=== PATIENT | female | born 1990 | race Caucasian/White ===

== ENCOUNTER 2017-06-28 05:59 | Inpatient (IN) | payer MEDICAID ==
[2017-06-28] MEDS ORDERED: Sodium Chloride 0.9% 1,000 ML IV SCH (06:30)
[2017-06-28] MEDS ORDERED: Oxytocin 10 Units/1 ML SDV ONE ×2 (06:40→08:17)
[2017-06-28] MEDS: Lactated Ringers 1,000 ML IV SCH ×3 (07:06→21:22)
[2017-06-28] MEDS ORDERED: diphenhydrAMINE 50 MG/ML SDV IVPUSH PRN (07:50)
[2017-06-28] MEDS ORDERED: Simethicone 80 MG Tab.Chew PO PRN (07:50)
[2017-06-28] MEDS ORDERED: Benzocaine 20% Top Spray 56 GM Bottle TOP PRN (07:50)
[2017-06-28] MEDS ORDERED: Bisacodyl 10 MG Supp RECTAL PRN (07:50)
[2017-06-28] MEDS ORDERED: ePHEDrine 50 MG/ML SDV IVPUSH PRN (07:50)
[2017-06-28] MEDS ORDERED: Ondansetron 4 MG Tab.DIS PO PRN (07:50)
[2017-06-28] MEDS ORDERED: Acetaminophen 325 MG Tab PO PRN (07:50)
[2017-06-28] MEDS ORDERED: Sennosides 8.6 MG Tab PO PRN (07:50)
[2017-06-28] MEDS ORDERED: Aluminum Hydroxide/Magnesium Hydroxide/Simethicone Susp 30 ML Cup PO PRN (07:50)
[2017-06-28] MEDS ORDERED: diphenhydrAMINE 50 MG/ML SDV IV PRN (07:50)
[2017-06-28] MEDS ORDERED: Hydrocortisone 2.5% Crm 30 GM Tube TOP PRN (07:50)
[2017-06-28] MEDS ORDERED: Naloxone 0.4 MG/ML SDV IVPUSH PRN ×2 (07:50→10:26)
[2017-06-28] MEDS ORDERED: Witch Hazel Medicated Pads 100/Jar TOP PRN (07:50)
[2017-06-28] MEDS ORDERED: Morphine 2 MG/ML Syringe IVPUSH PRN (07:53)
[2017-06-28] MEDS ORDERED: ePHEDrine 50 MG/ML SDV ONE (08:08)
[2017-06-28] MEDS ORDERED: Lidocaine 2% 5 ML SDV ONE (08:08)
[2017-06-28] MEDS ORDERED: cefOXitin 2 GM Vial ONE (08:23)
[2017-06-28] MEDS ORDERED: Sodium Chloride 0.9% 10 ML ONE (08:23)
[2017-06-28] MEDS: Ibuprofen 800 MG Tab PO PRN ×2 (10:06→21:21)
[2017-06-28] MEDS: Acetaminophen/HYDROcodone 325-5 MG Tab PO PRN (10:21)
[2017-06-28] MEDS ORDERED: Morphine PF 150 MG/30 ML PCA Syringe IV PRN (10:26)
[2017-06-28] MEDS ORDERED: Morphine 2 MG/ML Syringe IVPUSH ONE (10:35)
[2017-06-28] MEDS: Prenatal Multivitamin with Calcium/Folic Acid/Iron Tab PO SCH (18:29)
[2017-06-29] MEDS ORDERED: Lanolin 100% Cream 40 GM Tube TOP ONE (07:44)
[2017-06-29] MEDS: Ibuprofen 800 MG Tab PO PRN ×3 (07:50→23:51)
[2017-06-29] MEDS: Docusate Sodium 100 MG Cap PO PRN ×2 (07:50→19:13)
[2017-06-29] MEDS: Acetaminophen/HYDROcodone 325-5 MG Tab PO PRN ×4 (09:02→23:52)
--- NOTE | 2017-06-29 09:06 | OR ---
DATE OF PROCEDURE: 06/28/2017 PROCEDURES PERFORMED: 1. section with aftercare. 2. Tubal ligation. ANESTHESIA: Spinal. MANAGER CATH LAB: Tash Barrios CNM, CNP RISKS: Risks, benefits, alternatives, limitations including, but not limited to infection, bleeding, injury to baby, bladder, and other risks not listed here were explained to the patient, and she wished to proceed. PROCEDURE IN DETAIL: The patient was placed in supine position. The abdomen was prepped and draped. The previous Pfannenstiel incision was opened using a #15 blade. Electrocautery was then used to carry down to the external fascia, which was also opened with electrocautery. Metzenbaum scissors was used to enter the peritoneal cavity, and the bladder was identified and readily deflected inferiorly. Using the muscle spreading technique, the rectus muscles were then spread. The remainder of the bladder was deflected inferiorly. The uterine wall was noted to be very thin. This was opened with a mosquito dissector. This was then enlarged with electrocautery. The baby was delivered without difficulty. At no time was the baby's large head pulled on or uneven pressure applied, rather integrade pressure was used to deliver the baby. Once the baby was delivered, the placenta was delivered without difficulty. This was noted to be in totum. The uterus was inspected for any remnant material, and none was noted. The uterus was then closed with #1 Vicryl in a running locked fashion x2. This was delivered back in the abdomen, after tubal ligation was performed. Tubal ligation was performed by clamping and suture-ligating the tube on the left and the right. This will be sent for pathology. The ends were then burned with electrocautery. The abdomen was thoroughly irrigated. The rectus muscles were reapproximated with Vicryl suture. The fascia was closed with #1 Vicryl suture. Subcutaneous tissues were thoroughly irrigated. The fat was closed with Vicryl, and the skin was closed with 4-0 Vicryl. Dermabond was applied. Bruno Briceño MD /[id number]
[2017-06-29] MEDS: Prenatal Multivitamin with Calcium/Folic Acid/Iron Tab PO SCH (11:35)
[2017-06-30] MEDS: Acetaminophen/HYDROcodone 325-5 MG Tab PO PRN ×2 (05:28→09:31)
[2017-06-30 07:49] VITALS: BP 140/86
[2017-06-30] MEDS: Prenatal Multivitamin with Calcium/Folic Acid/Iron Tab PO SCH (09:05)
[2017-06-30] MEDS ORDERED: Lanolin 100% Cream 40 GM Tube TOP PRN (09:06)
[2017-06-30] MEDS: Ibuprofen 800 MG Tab PO PRN (09:09)
--- NOTE | 2017-07-01 09:34 | DISCH ---
ADMISSION DIAGNOSIS: Term . DISCHARGE DIAGNOSIS: section with after care and tubal ligation. HISTORY: After preoperative evaluation and discussion of possible risks and possible complications, she wished to proceed with surgical procedure. HOSPITAL COURSE: was on 06/28/2017. Bruno Briceño MD, surgeon. Publisher Assistant, Shikha Barrios CNM/SHANICE. There were no operative complications. On postop day 1, vital signs were stable. Activity was good and she was able to be discharged to home on 06/30/2017. PHYSICAL EXAMINATION: GENERAL: Yazmin Albert is a 26-year-old female. VITAL SIGNS: Height 5 feet 4.96 inches. Weight is 255 pounds. TPR is 95.4, 84, 16, blood pressure is 140/86. HEENT: Negative. NECK: Supple. HEART: Regular rate and rhythm. LUNGS: Clear. ABDOMEN: Incision looks good. EXTREMITIES: Without peripheral edema. DISPOSITION: Discharged to home. CONDITION: Stable and improving. FOLLOWUP APPOINTMENT: With Bruno Briceño MD, 07/05/2017 at 1 p.m. HOME MEDICATIONS: Tylenol 650 mg q.4 hours p.r.n. pain, Dozier 5/325 mg q.4 hours p.r.n. pain #30, Colace 100 mg p.o. q.12 hours #100, ibuprofen 800 mg q.8 hours p.r.n. pain #80. She is to resume her home medication. DIET: Usual diet as tolerated. Drink 8 to 10 glasses of water a day. ACTIVITY: No lifting greater than baby in car seat for 6 weeks[address] Driving, do not drive on pain medication. Shower/bathing, may shower. Keep operative site clean and dry. Notify provider if any fever, increased pain, swelling, redness, drainage, nausea, or vomiting.
--- NOTE | 2017-08-06 10:00 | PN ---
DATE OF SERVICE: 06/29/2017 SUBJECTIVE: The patient continues to do well. Pain is well controlled. No nausea, vomiting, shortness of breath, or chest pain. OBJECTIVE: VITAL SIGNS: Temperature 96.8, blood pressure 122/66, pulse 95, respirations 16, 100% on room air. CARDIOVASCULAR: Regular rhythm and rate. RESPIRATORY: Lungs clear to consultation bilaterally. ABDOMEN: Bowel sounds are positive. LABORATORY DATA: Show a hemoglobin of 11.7, white blood cell count 9.1, and creatinine is normal. ASSESSMENT: Status post . PLAN: We will work on diet and activity today. Pain seems to be well controlled. We will continue the same plan. Bruno Briceño MD /[id number]
== END 2017-06-30 11:00 | disposition home or self-care (01) | DRG 540 ==
LOC: JP.SDS 05:59 → JP.MS 08:21
PROVIDERS: ADMIT Surgery; ATTEND Surgery
PROC: 10D00Z1 Extraction of Products of Conception, Low, Open Approach (ICD-10-PCS; principal; 2017-06-28)
PROC: 0UB70ZZ Excision of Bilateral Fallopian Tubes, Open Approach (ICD-10-PCS; 2017-06-28)
DX: O34.211 Maternal care for low transverse scar from previous cesarean delivery (principal); N85.8 Other specified noninflammatory disorders of uterus; Z3A.00 Weeks of gestation of pregnancy not specified; Z37.0 Single live birth; O99.344 Other mental disorders complicating childbirth; Z86.59 Personal history of other mental and behavioral disorders; Z91.030 Bee allergy status; Z91.048 Other nonmedicinal substance allergy status
CPT/HCPCS: 36415; 59409; 80048; 80305; 85027; 86850; 86900; 86901; 88302; 88307; 94762; A9270-GY; J0694; J2270; J2590; J7050; J7120

== ENCOUNTER 2017-07-02 21:10 | Emergency (ER) | payer MEDICAID ==
[2017-07-02] MEDS ORDERED: Lactated Ringers 1,000 ML IV ONE (22:07)
[2017-07-02] MEDS ORDERED: Sodium Chloride 0.9% 10 ML Syringe FLUSH PRN (22:07)
--- NOTE | 2017-07-02 22:12 | EDM.PDOC ---
ED HPI GENERAL MEDICAL PROBLEM - General Chief Complaint: Headache Stated Complaint: HEADACHE,BACKACHE/ ON TUESDAY Time Seen by Provider: 07/02/17 21:57 Source of Information: Reports: Patient, RN Notes Reviewed History Limitations: Reports: No Limitations - History of Present Illness INITIAL COMMENTS - FREE TEXT/NARRATIVE: 26-year-old female presents emergency department day complaint of headache, she has no history of migraine headache she recently had C-sections day for she had spinal anesthesia done for her 3 days after the procedure she started developing headache and low back she feels the headache is incapacitating has no nausea or vomiting no photophobia headache Pain Score (Numeric/FACES): 10 - Related Data Allergies Allergy/AdvReac Type Severity Reaction Status Date / Time tape Allergy Rash Uncoded 07/02/17 21:38 Home Meds: Home Meds Albuterol Sulfate [Albuterol Sulfate HFA] 8.5 gm IH ASDIRECTED PRN 12/07/13 [ History] Vit No.78/Iron/Fa [Prenatabs FA] 1 tab PO DAILY 05/13/17 [History] Acetaminophen [Tylenol] 650 mg PO Q4H PRN #100 tablet 06/30/17 [Rx] Acetaminophen/HYDROcodone [[place] 325-5 MG] 2 tab PO Q4H PRN #30 tablet 06/30/17 [Rx] Docusate Sodium [Colace] 100 mg PO Q12H #100 cap 06/30/17 [Rx] Ibuprofen [IJD: Ibuprofen] 800 mg PO Q8H PRN #60 tablet 06/30/17 [Rx] Vit with Ca/FA/Iron [ Plus Iron] 1 each PO DAILY tablet [Rx] [place] Marcie [Tucks] 1 pad TOP ASDIRECTED PRN pad 06/30/17 [Rx] Past Medical History Respiratory History: Reports: Asthma 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 History: Reports: Renal Calculus 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: Psychiatric History: Reports: Anxiety, Bipolar, Depression, Other (See Below) Other Psychiatric History: borderline personality; social anxiety disorder Endocrine/Metabolic History: Reports: Obesity/BMI 30+ - Infectious Disease History Infectious Disease History: Reports: Chicken Pox - Past Surgical History HEENT Surgical History: Reports: Adenoidectomy, Tonsillectomy Respiratory Surgical History: Reports: None Female Surgical History: Reports: Section Endocrine Surgical History: Reports: None Social & Family History - Family History Family Medical History: Noncontributory - Tobacco Use Smoking Status *Q: Current Every Day Smoker Years of Tobacco use: 7 Packs/Tins Daily: 0.2 Used Tobacco, but Quit: Yes Month Tobacco Last Used: 2 Second Hand Smoke Exposure: No - Caffeine Use Caffeine Use: Reports: Coffee, Soda - Alcohol Use Days Per Week of Alcohol Use: 0 Number of Drinks Per Day: 4 Total Drinks Per Week: 0 - Recreational Drug Use Recreational Drug Use: No Drug Use in Last 12 Months: Yes Recreational Drug Type: Reports: Marijuana/Hashish Recreational Drug Use Frequency: Monthly Recreational Drug Last Use: today ED ROS GENERAL - Review of Systems Review Of Systems: See Below Constitutional: Reports: No Symptoms HEENT: Denies: Eye Pain Respiratory: Reports: No Symptoms Cardiovascular: Reports: No Symptoms GI/Abdominal: Denies: Nausea : Reports: No Symptoms Musculoskeletal: Reports: No Symptoms Skin: Reports: No Symptoms Neurological: Reports: Headache - Physical Exam Exam: See Below Exam Limited By: No Limitations General Appearance: Alert, Moderate Distress Eye Exam: Bilateral Eye: Normal Fundi, Normal Inspection Head Exam: Atraumatic, Normocephalic Neck: Normal Inspection, Supple, Non-Tender, Full Range of Motion Respiratory/Chest: No Respiratory Distress, Lungs Clear, Normal Breath Sounds, No Accessory Muscle Use Cardiovascular: Regular Rate, Rhythm, No Murmur Course - Vital Signs Last Recorded V/S: Last Vital Signs Temp 99.0 F 07/02/17 23:13 Pulse 84 07/02/17 23:13 Resp 20 07/02/17 23:13 BP 147/112 H 07/02/17 23:13 Pulse Ox 98 07/02/17 23:13 - Orders/Labs/Meds Orders: Active Orders 24 hr Category Date Time Status Peripheral IV Care [RC] . DIRECTED Care 07/02/17 22:07 Active Lactated Ringers [Ringers, Lactated] 1,000 ml Med 07/02/17 22:07 Active IV BOLUS Sodium Chloride 0.9% [Saline Flush] Med 07/02/17 22:07 Active 10 ml FLUSH ASDIRECTED PRN Peripheral IV Insertion Adult [OM.PC] Urgent Oth 07/02/17 22:07 Ordered Medication Orders Lactated Ringer's (Ringers, Lactated) 1,000 mls @ 100 mls/hr IV BOLUS ONE Stop: 07/03/17 08:06 Last Admin: 07/02/17 22:16 Dose: 100 mls/hr Sodium Chloride (Saline Flush) 10 ml FLUSH ASDIRECTED PRN PRN Reason: Keep Vein Open Last Admin: 07/02/17 22:16 Dose: 10 ml Meds: Medications Generic Name Dose Route Start Last Admin Trade Name Freq PRN Reason Stop Dose Admin Lactated Ringer's 1,000 mls @ 100 mls/hr 07/02/17 22:07 07/02/17 22:16 Ringers, Lactated IV 07/03/17 08:06 100 mls/hr BOLUS ONE Administration Sodium Chloride 10 ml 07/02/17 22:07 07/02/17 22:16 Saline Flush FLUSH 10 ml ASDIRECTED PRN Administration Keep Vein Open Discontinued Medications Generic Name Dose Route Start Last Admin Trade Name Freq PRN Reason Stop Dose Admin Lidocaine HCl Confirm 07/02/17 22:30 Xylocaine-Mpf 1% Administered 07/02/17 22:31 Dose 2 mls @ as directed .ROUTE .STK-MED ONE Departure - Departure Time of Disposition: 00:35 Disposition: Home, Self-Care 01 Condition: Good Clinical Impression: Postoperative spinal headache - Discharge Information Referrals: Tash Barrios CNM [Primary Care Provider] - Forms: ED Department Discharge Additional Instructions: Please followup with your primary care provider in 3-5 days if not better, please call return to the emergency department with worsening of symptoms. - My Orders Last 24 Hours: My Active Orders 07/02/17 22:07 Peripheral IV Care [RC] . DIRECTED Lactated Ringers [Ringers, Lactated] 1,000 ml IV BOLUS Sodium Chloride 0.9% [Saline Flush] 10 ml FLUSH ASDIRECTED PRN Peripheral IV Insertion Adult [OM.PC] Urgent - Assessment/Plan Last 24 Hours: My Active Orders 07/02/17 22:07 Peripheral IV Care [RC] . DIRECTED Lactated Ringers [Ringers, Lactated] 1,000 ml IV BOLUS Sodium Chloride 0.9% [Saline Flush] 10 ml FLUSH ASDIRECTED PRN Peripheral IV Insertion Adult [OM.PC] Urgent Plan: Assessment Acuity = acute Site and laterality = postprocedural spinal headache Etiology = probable relationship to spinal anesthesia Manifestations = none Location of injury = Home Lab values = none Plan Anesthesia was called and they came and performed a blood patch please see note for details, after this procedure she felt significantly better plan is to discharge to home follow-up with primary care as needed Patient was in agreement with the plan all questions were answered, they were instructed to return to the emergency department or call for worsening symptoms. This note was dictated using [employer] voice recognition software please call with any questions.
[2017-07-02] MEDS ORDERED: Lidocaine 1% 2 ML ONE (22:30)
[2017-07-02 23:13] VITALS: BP 147/112
--- NOTE | 2017-07-03 00:03 | ANES ---
DATE OF SERVICE: 07/02/2017 INDICATIONS: Ms. Albert is a 26-year-old female, who comes to the ER today complaining of a headache. She had a done on Tuesday, which she had under a spinal anesthetic. She displays very significant symptoms of a postdural puncture headache. The mechanism risks, benefits, and the procedure were explained to the patient. She wished to proceed with a blood patch. DESCRIPTION OF PROCEDURE: I started an 18-gauge IV in her left antecubital. I did Hep-Lock that. I then sat her up and placed in a sitting position. I prepped her back with Betadine x3 and 1% lidocaine skin local was used. I did the epidural blood patch to the level below the dural puncture. The epidural had very good feel throughout and the epidural space was easily identified. There was negative CSF, negative blood, and negative paresthesias noted. The emergency room nurse then withdrew 20 mL of the patient's autologous blood from the IV that I started. I did inject 20 mL of autologous blood into the epidural space and the patient tolerated that very nicely. I flushed the needle with a 0.5 mL of saline. I withdrew the needle. We placed the patient in the supine position. I told her to stay in the supine position for an hour and would then give her a liter to a liter and a half of fluid. After an hour, she can get up, see how she feels, and go ahead and be discharged for the emergency room staff. I did also tell her that in 3 days if her headache is not any better, please give us a call back. She tolerated the procedure very nicely. Her vital signs remained stable throughout the procedure. Nurse was with me the entire procedure. There were no anesthesia complications noted and she will let us know if she needs any further treatments. Clive Grayson CRNA /[id number]
== END 2017-07-03 00:49 | disposition home or self-care (01) ==
LOC: JP.ED 21:10
DX: G97.1 Other reaction to spinal and lumbar puncture (principal); R51 Headache; J45.909 Unspecified asthma, uncomplicated; F31.9 Bipolar disorder, unspecified; Z91.09 Other allergy status, other than to drugs and biological substances; Z79.899 Other long term (current) drug therapy
CPT/HCPCS: 62273; 96360; 96361; 99284; J7050; J7120

== ENCOUNTER 2019-04-30 21:11 | Emergency (ER) | payer MEDICAID ==
[2019-04-30 21:34] VITALS: BP 129/89; PULSE 109
[2019-04-30] MEDS ORDERED: Acetaminophen/HYDROcodone 325-5 MG Tab PO ONE (21:38)
--- NOTE | 2019-04-30 21:45 | EDM.PDOC ---
ED HPI GENERAL MEDICAL PROBLEM - General Chief Complaint: ENT Problem Stated Complaint: TOOTH INFECTION Time Seen by Provider: 04/30/19 21:35 Source of Information: Reports: Patient, Old Records History Limitations: Reports: No Limitations - History of Present Illness INITIAL COMMENTS - FREE TEXT/NARRATIVE: 28 yo female presents with dental pain. Pain is somewhat chronic, but worse lately. No fever. Has been on clindamycin for an extended period waiting for an appt with an oral surgeon in [place] for an extraction of most of her teeth. Most of her current pain is from the L mandible area. Onset: Gradual Duration: Day(s):, Getting Worse Location: Reports: Face (L mandible) Quality: Reports: Ache Severity: Moderate Improves with: Reports: Medication Worsens with: Reports: Other (time) Context: Reports: Other (See HPI) Associated Symptoms: Reports: No Other Symptoms. 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: Clindamycin - Related Data Allergies Allergy/AdvReac Type Severity Reaction Status Date / Time tape Allergy Rash Uncoded 07/02/17 21:38 Home Meds: Home Meds Albuterol Sulfate [Albuterol Sulfate HFA] 8.5 gm IH ASDIRECTED PRN 12/07/13 [ History] Vit No.78/Iron/Fa [Prenatabs FA] 1 tab PO DAILY 05/13/17 [History] Acetaminophen [Tylenol] 650 mg PO Q4H PRN #100 tablet 06/30/17 [Rx] Acetaminophen/HYDROcodone [[place] 325-5 MG] 2 tab PO Q4H PRN #30 tablet 06/30/17 [Rx] Docusate Sodium [Colace] 100 mg PO Q12H #100 cap 06/30/17 [Rx] Ibuprofen [IJD: Ibuprofen] 800 mg PO Q8H PRN #60 tablet 06/30/17 [Rx] Vit with Ca/FA/Iron [ Plus Iron] 1 each PO DAILY tablet [Rx] [place] Marcie [Tucks] 1 pad TOP ASDIRECTED PRN pad 06/30/17 [Rx] Past Medical History - Past Health History Medical/Surgical History: Denies Medical/Surgical History HEENT History: Reports: None Respiratory History: Reports: Asthma 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 History: Reports: Renal Calculus 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: Psychiatric History: Reports: Anxiety, Bipolar, Depression, Other (See Below) Other Psychiatric History: borderline personality; social anxiety disorder Endocrine/Metabolic History: Reports: Obesity/BMI 30+ - Infectious Disease History Infectious Disease History: Reports: Chicken Pox - Past Surgical History HEENT Surgical History: Reports: Adenoidectomy, Tonsillectomy Respiratory Surgical History: Reports: None Female Surgical History: Reports: Section Endocrine Surgical History: Reports: None Social & Family History - Family History Family Medical History: Noncontributory - Caffeine Use Caffeine Use: Reports: Coffee, Soda ED ROS ENT - Review of Systems Review Of Systems: See Below Constitutional: Reports: No Symptoms HEENT: Reports: Dental Pain Respiratory: Reports: No Symptoms Cardiovascular: Reports: No Symptoms GI/Abdominal: Reports: No Symptoms Skin: Reports: No Symptoms Neurological: Reports: No Symptoms ED EXAM, ENT - Physical Exam Exam: See Below Exam Limited By: No Limitations General Appearance: Alert, WD/WN, Mild Distress Eye Exam: Bilateral Eye: Normal Inspection Ears: Normal External Exam, Normal Canal, Hearing Grossly Normal Nose: Normal Inspection, No Blood Mouth/Throat: Normal Lips, Normal Oropharynx, Dental Abcess, Dental Pain, Dental Tenderness, Other (many of her teeth are decayed, those of the L mandible are especially decayed. ). No: Normal Teeth, Bleeding, Dental Trauma, Dry Mucous Membrane, Hoarse Voice, Lip Swelling, Lip Ulcers, Muffled Voice, Peritonsillar Mass, Throat Pain, Throat Swelling, Tongue Swelling, Tonsillar Erythema, Tonsillar Exudates, Tonsillar Swelling, Uvular Deviation, Uvular Edema Head: Atraumatic, Normocephalic Neck: Normal Inspection, Supple, Non-Tender. No: Lymphadenopathy (R), Lymphadenopathy (L) Respiratory/Chest: No Respiratory Distress, Lungs Clear, Normal Breath Sounds, No Accessory Muscle Use Cardiovascular: Regular Rate, Rhythm, No Edema Neurological: Alert, Oriented, CN II-XII Intact, Normal Cognition, No Motor/ Sensory Deficits Psychiatric: Normal Affect, Normal Mood Skin: Warm, Dry, Intact, Normal Color, No Rash Course - Vital Signs Last Recorded V/S: Last Vital Signs Temp 35.7 C 04/30/19 21:32 Pulse 109 H 04/30/19 21:32 Resp 20 04/30/19 21:32 BP 129/89 04/30/19 21:32 Pulse Ox 100 04/30/19 21:32 - Orders/Labs/Meds Meds: Medications Discontinued Medications Generic Name Dose Route Start Last Admin Trade Name Jerrod PRN Reason Stop Dose Admin Hydrocodone Bitart/Acetaminophen 1 tab 04/30/19 21:38 [place] 325-5 Mg PO 04/30/19 21:39 ONETIME ONE Departure - Departure Time of Disposition: 21:55 Disposition: Home, Self-Care 01 Condition: Fair Clinical Impression: Dental abscess - Discharge Information *PRESCRIPTION DRUG MONITORING PROGRAM REVIEWED*: No *COPY OF PRESCRIPTION DRUG MONITORING REPORT IN PATIENT LOCO: No Instructions: Dental Abscess, [id number] Referrals: PCP,None [Primary Care Provider] - Additional Instructions: Switch from clindamycin to Penicillin and take as directed. Take ibuprofen 400- 600 mg every 6 hrs with food for pain relief. Add acetaminophen for pain relief OR [place] if more pain relief is needed. See your doctor for follow up from the ER.
== END 2019-04-30 22:16 | disposition home or self-care (01) ==
LOC: JP.ED 21:11
DX: K04.7 Periapical abscess without sinus (principal); K02.9 Dental caries, unspecified; J45.909 Unspecified asthma, uncomplicated; Z79.899 Other long term (current) drug therapy; Z91.048 Other nonmedicinal substance allergy status
CPT/HCPCS: 99282; A9270

== ENCOUNTER 2019-05-16 18:15 | Emergency (ER) | payer MEDICAID ==
[2019-05-16 19:08] VITALS: BP 136/87
--- NOTE | 2019-05-16 19:15 | EDM.PDOC ---
ED HPI GENERAL MEDICAL PROBLEM - General Chief Complaint: Lower Extremity Injury/Pain Stated Complaint: FELL DOWNSTAIRS AND RIGHT FOOT INJURIED Time Seen by Provider: 05/16/19 19:05 Source of Information: Reports: Patient History Limitations: Reports: No Limitations - History of Present Illness INITIAL COMMENTS - FREE TEXT/NARRATIVE: 28-year-old female with a right foot injury. She missed a step 2-3 hours ago buckling her right foot underneath her. She now has swelling on the top of her foot, pain, and inability to bear weight. No other injury. Onset: Sudden Duration: Hour(s): (2 hours ago) Location: Reports: Lower Extremity, Right Associated Symptoms: Reports: No Other Symptoms Right Feet Pain Score (Numeric/FACES): 8 - Related Data Allergies Allergy/AdvReac Type Severity Reaction Status Date / Time tape Allergy Rash Uncoded 05/16/19 19:04 Home Meds: Home Meds Ibuprofen [IJD: Ibuprofen] 800 mg PO Q8H PRN #60 tablet 06/30/17 [Rx] ALPRAZolam [Alprazolam] 1 tab PO DAILY 05/16/19 [History] ARIPiprazole [Aripiprazole] 7 mg pe PO DAILY 05/16/19 [History] Escitalopram Oxalate 20 mg PO DAILY 05/16/19 [History] Past Medical History - Past Health History Medical/Surgical History: Denies Medical/Surgical History HEENT History: Reports: None Respiratory History: Reports: Asthma 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 History: Reports: Renal Calculus 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: Neurological History: Reports: Brain Injury Psychiatric History: Reports: Anxiety, Bipolar, Depression, Other (See Below) Other Psychiatric History: borderline personality; social anxiety disorder Endocrine/Metabolic History: Reports: Obesity/BMI 30+ - Infectious Disease History Infectious Disease History: Reports: Chicken Pox - Past Surgical History HEENT Surgical History: Reports: Adenoidectomy, Tonsillectomy Female Surgical History: Reports: Section, Tubal Ligation Endocrine Surgical History: Reports: None Social & Family History - Family History Family Medical History: Noncontributory - Tobacco Use Smoking Status *Q: Current Every Day Smoker Years of Tobacco use: 10 Packs/Tins Daily: 0.7 - Caffeine Use Caffeine Use: Reports: Soda - Recreational Drug Use Recreational Drug Use: No Review of Systems - Review of Systems Review Of Systems: See Below Constitutional: Denies: Fever Respiratory: Reports: No Symptoms Cardiovascular: Reports: No Symptoms GI/Abdominal: Reports: No Symptoms Skin: Reports: Bruising (Some bruising and swelling is developing on the top of the foot) Neurological: Denies: Paresthesia ED EXAM, GENERAL - Physical Exam Exam: See Below Exam Limited By: No Limitations General Appearance: Alert, No Apparent Distress (Patient is uncomfortable but not distressed) Respiratory/Chest: No Respiratory Distress Extremities: Other (Exam is otherwise limited to the right lower extremity. She has no tenderness around the ankle. She has swelling and tenderness on the top of the foot laterally, no significant tenderness of the arch.) Course - Vital Signs Last Recorded V/S: Last Vital Signs Temp 97.6 F 05/16/19 19:07 Pulse 119 H 05/16/19 19:07 Resp 18 05/16/19 19:07 BP 136/87 05/16/19 19:07 Pulse Ox 97 05/16/19 19:07 - Orders/Labs/Meds Orders: Active Orders 24 hr Category Date Time Status DME for Discharge [COMM] Stat Oth 05/16/19 20:02 Ordered Meds: Medications Discontinued Medications Generic Name Dose Route Start Last Admin Trade Name Freq PRN Reason Stop Dose Admin Ketorolac Tromethamine 60 mg 05/16/19 19:35 05/16/19 19:41 Toradol IM 05/16/19 19:36 60 mg ONETIME ONE Administration - Re-Assessments/Exams Free Text/Narrative Re-Assessment/Exam: 05/16/19 19:15 Right foot x-ray was obtained. 05/16/19 19:30 X-rays negative, a three-inch Doyle wrap was applied to the foot. Patient was offered crutches but declined. A note was given and she may miss work for the next couple days. Recheck in 5-10 days if not improving satisfactorily. 05/16/19 19:36 Patient was given 60 mg of IM Toradol and 6 doses of hydrocodone to take for extra pain control. 05/16/19 20:02 Patient changed her mind prior to discharge and did ask for crutches, these were ordered. Departure - Departure Time of Disposition: 20:06 Disposition: Home, Self-Care 01 Clinical Impression: Right foot sprain Qualifiers: Encounter type: initial encounter Qualified Code(s): S93.601A - Unspecified sprain of right foot, initial encounter - Discharge Information Instructions: Foot Sprain Referrals: PCP,None [Primary Care Provider] - Forms: ED Department Discharge Care Plan Goals: Wrap to control swelling, elevate and ice will help as well. A regular dose of ibuprofen or naproxen is encouraged and use stronger pain medication as prescribed if needed. Increase activity as soon as possible, and recheck in 5-7 days if not improving satisfactorily. - My Orders Last 24 Hours: My Active Orders 05/16/19 20:02 DME for Discharge [COMM] Stat - Assessment/Plan Last 24 Hours: My Active Orders 05/16/19 20:02 DME for Discharge [COMM] Stat
[2019-05-16] MEDS ORDERED: Ketorolac 60 MG/2 ML SDV IM ONE (19:35)
--- NOTE | 2019-05-16 19:56 | CRLCR ---
Indication: Injury and pain Technique: Right foot 3 views. Comparison: None Findings: Bones: Alignment is normal. No fractures or bone lesions. Joint spaces: Unremarkable. Soft tissues: Unremarkable. Impression: No sign of acute injury. Dictated by Gilberto Machado MD @ 05/16/2019 7:55:14 PM Dictated by: Gilberto Machado MD @ 05/16/2019 19:55:19 (Electronically Signed)
== END 2019-05-16 20:06 | disposition home or self-care (01) ==
LOC: JP.ED 18:15
DX: S93.601A Unspecified sprain of right foot, initial encounter (principal); F41.9 Anxiety disorder, unspecified; F32.9 Major depressive disorder, single episode, unspecified; F17.210 Nicotine dependence, cigarettes, uncomplicated; Z91.048 Other nonmedicinal substance allergy status; Z79.899 Other long term (current) drug therapy; W10.9XXA Fall (on) (from) unspecified stairs and steps, initial encounter
CPT/HCPCS: 73630; 96372; 99283; J1885

== ENCOUNTER 2020-12-30 20:45 | Emergency (ER) | payer MEDICAID ==
[2020-12-30] MEDS ORDERED: Sodium Chloride 0.9% 10 ML Syringe FLUSH PRN (21:19)
[2020-12-30] MEDS ORDERED: HYDROmorphone 0.5 MG/0.5 ML Syringe IVPUSH ONE ×2 (21:21→22:24)
[2020-12-30] MEDS ORDERED: Ondansetron 4 MG/2 ML SDV IVPUSH ONE (21:21)
[2020-12-30] MEDS ORDERED: Ketorolac 30 MG/ML SDV IVPUSH ONE (21:22)
--- NOTE | 2020-12-30 21:23 | EDM.PDOC ---
ED HPI GENERAL MEDICAL PROBLEM - General Chief Complaint: Back Pain or Injury Stated Complaint: MEDICAL [facility]IA [facility] Time Seen by Provider: 12/30/20 21:16 Source of Information: Reports: Patient, RN Notes Reviewed History Limitations: Reports: No Limitations - History of Present Illness INITIAL COMMENTS - FREE TEXT/NARRATIVE: 30-year-old female presents emergency department with a complaint of abdominal pain right flank pain, she states it started last couple days but has progressively gotten worse today she does feel nauseated no vomiting states she is having normal bowel movements no difficulty breathing - Related Data Allergies Allergy/AdvReac Type Severity Reaction Status Date / Time tape Allergy Rash Uncoded 12/30/20 21:00 Home Meds: Home Meds Ibuprofen [IJD: Ibuprofen] 800 mg PO Q8H PRN #60 tablet 06/30/17 [Rx] Albuterol Sulfate [Proventil Hfa] 2 puff IH Q4H PRN 12/30/20 [History] Past Medical History Respiratory History: Reports: Asthma 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 History: Reports: 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: Neurological History: Reports: Brain Injury Psychiatric History: Reports: Anxiety, Bipolar, Depression, Other (See Below) Other Psychiatric History: borderline personality; social anxiety disorder Endocrine/Metabolic History: Reports: Obesity/BMI 30+ - Infectious Disease History Infectious Disease History: Reports: Chicken Pox - Past Surgical History HEENT Surgical History: Reports: Adenoidectomy, Tonsillectomy Respiratory Surgical History: Reports: None Female Surgical History: Reports: Section, Tubal Ligation Endocrine Surgical History: Reports: None Social & Family History - Family History Family Medical History: No Pertinent Family History - Tobacco Use Tobacco Use Status *Q: Current Every Day Tobacco User Years of Tobacco use: 14 Packs/Tins Daily: 0.5 - Caffeine Use Caffeine Use: Reports: Soda - Recreational Drug Use Recreational Drug Use: Yes Recreational Drug Type: Reports: Marijuana/Hashish Recreational Drug Use Frequency: Daily ED ROS GENERAL - Review of Systems Review Of Systems: See Below Constitutional: Reports: No Symptoms HEENT: Reports: No Symptoms Respiratory: Reports: No Symptoms Cardiovascular: Reports: No Symptoms GI/Abdominal: Reports: Abdominal Pain, Nausea. Denies: Constipation, Diarrhea, Vomiting : Reports: Flank Pain Skin: Reports: No Symptoms ED EXAM, GI/ABD - Physical Exam Exam: See Below Exam Limited By: Uncooperative General Appearance: Alert, Moderate Distress Respiratory/Chest: No Respiratory Distress, Lungs Clear, Normal Breath Sounds, No Accessory Muscle Use, Chest Non-Tender Cardiovascular: Regular Rate, Rhythm, No Murmur GI/Abdominal Exam: Soft, Tender (Right flank) Back Exam: Normal Inspection, Full Range of Motion, CVA Tenderness (R). No: CVA Tenderness (L) Course - Vital Signs Last Recorded V/S: Last Vital Signs Temp 98.4 F 12/30/20 21:04 Pulse 104 H 12/30/20 22:46 Resp 16 12/30/20 22:46 BP 126/70 12/30/20 22:46 Pulse Ox 95 12/30/20 22:46 - Orders/Labs/Meds Orders: Active Orders 24 hr Category Date Time Status Peripheral IV Care [RC] . DIRECTED Care 12/30/20 21:19 Active Nothing per Oral Now Diet [DIET] Diet 12/30/20 Breakfast Active Lactated Ringers [Ringers, Lactated] 1,000 ml Med 12/30/20 21:30 Active IV ASDIRECTED Sodium Chloride 0.9% [Normal Saline] 83 ml Med 12/30/20 21:45 Active IV ASDIRECTED Sodium Chloride 0.9% [Saline Flush] Med 12/30/20 21:19 Active 10 ml FLUSH ASDIRECTED PRN Peripheral IV Insertion Adult [OM.PC] Urgent Oth 12/30/20 21:19 Ordered Medication Orders Lactated Ringer's (Ringers, Lactated) 1,000 mls @ 999 mls/hr IV ASDIRECTED [facility] Last Admin: 12/30/20 22:14 Dose: 999 mls/hr Documented by: BETH Sodium Chloride (Normal Saline) 83 mls @ 3 mls/sec IV ASDIRECTED TOBY Last Admin: 12/30/20 22:26 Dose: 3 mls/sec Documented by: PINO Sodium Chloride (Sodium Chloride 0.9% 10 Ml Syringe) 10 ml FLUSH ASDIRECTED PRN PRN Reason: Keep Vein Open Last Admin: 12/30/20 22:26 Dose: 10 ml Documented by: PINO Labs: Laboratory Tests 12/30/20 12/30/20 12/30/20 Range/Units 21:55 21:55 21:55 WBC 13.7 H (4.5-11.0) K/uL RBC 4.51 (3.30-5.50) M/uL Hgb 13.0 (12.0-15.0) g/dL Hct 39.6 (36.0-48.0) % MCV 88 (80-98) fL MCH 29 (27-31) pg MCHC 33 (32-36) % Plt Count 434 H (150-400) K/uL Neut % (Auto) 74 H (36-66) % Lymph % (Auto) 19 L (24-44) % [place] % (Auto) 7 H (2-6) % Eos % (Auto) 1 L (2-4) % Baso % (Auto) 0 (0-1) % Sodium 141 (140-148) mmol/L Potassium 4.1 (3.6-5.2) mmol/L Chloride 103 (100-108) mmol/L Carbon Dioxide 28 (21-32) mmol/L Anion Gap 10.4 (5.0-14.0) mmol/L BUN 5 L (7-18) mg/dL Creatinine 0.8 (0.6-1.0) mg/dL Est Cr Clr Drug Dosing 97.13 mL/min Estimated GFR (MDRD) > 60 (>60) Glucose 92 (74-106) mg/dL Lactic Acid 0.9 (0.4-2.0) mmol/L Calcium 9.1 D (8.5-10.1) mg/dL Total Bilirubin 0.3 (0.2-1.0) mg/dL AST 14 L (15-37) U/L ALT 23 (12-78) U/L Alkaline Phosphatase 82 (46-116) U/L Total Protein 7.6 (6.4-8.2) g/dL Albumin 3.3 L (3.4-5.0) g/dL Globulin 4.3 H (2.3-3.5) g/dL Albumin/Globulin Ratio 0.8 L (1.2-2.2) Lipase 82 (73-393) U/L HCG, Qual Urine Color (YELLOW) Urine Appearance (CLEAR) Urine pH (5.0-8.0) Ur Specific [place] (1.008-1.030) Urine Protein (NEGATIVE) mg/dL Urine Glucose (UA) (NEGATIVE) mg/dL Urine Ketones (NEGATIVE) mg/dL Urine Occult Blood (NEGATIVE) Urine Nitrite (NEGATIVE) Urine Bilirubin (NEGATIVE) Urine Urobilinogen (0.2-1.0) EU/dL Ur Leukocyte Esterase (NEGATIVE) Urine RBC (0-5) Urine WBC (0-5) Ur Epithelial Cells Amorphous Sediment Urine Bacteria Urine Mucus Urine Opiates Screen (NEGATIVE) Ur Oxycodone Screen (NEGATIVE) Urine Methadone Screen (NEGATIVE) Ur Propoxyphene Screen (NEGATIVE) Ur Barbiturates Screen (NEGATIVE) Ur Tricyclics Screen (NEGATIVE) Ur Phencyclidine Scrn (NEGATIVE) Ur Amphetamine Screen (NEGATIVE) U Methamphetamines Scrn (NEGATIVE) Urine MDMA Screen (NEGATIVE) U Benzodiazepines Scrn (NEGATIVE) U Cocaine Metab Screen (NEGATIVE) U Marijuana (THC) Screen (NEGATIVE) 12/30/20 12/30/20 12/30/20 Range/Units 21:55 22:25 22:35 WBC (4.5-11.0) K/uL RBC (3.30-5.50) M/uL Hgb (12.0-15.0) g/dL Hct (36.0-48.0) % MCV (80-98) fL MCH (27-31) pg MCHC (32-36) % Plt Count (150-400) K/uL Neut % (Auto) (36-66) % Lymph % (Auto) (24-44) % [place] % (Auto) (2-6) % Eos % (Auto) (2-4) % Baso % (Auto) (0-1) % Sodium (140-148) mmol/L Potassium (3.6-5.2) mmol/L Chloride (100-108) mmol/L Carbon Dioxide (21-32) mmol/L Anion Gap (5.0-14.0) mmol/L BUN (7-18) mg/dL Creatinine (0.6-1.0) mg/dL Est Cr Clr Drug Dosing mL/min Estimated GFR (MDRD) (>60) Glucose (74-106) mg/dL Lactic Acid (0.4-2.0) mmol/L Calcium (8.5-10.1) mg/dL Total Bilirubin (0.2-1.0) mg/dL AST (15-37) U/L ALT (12-78) U/L Alkaline Phosphatase (46-116) U/L Total Protein (6.4-8.2) g/dL Albumin (3.4-5.0) g/dL Globulin (2.3-3.5) g/dL Albumin/Globulin Ratio (1.2-2.2) Lipase (73-393) U/L HCG, Qual Negative Urine Color Yellow (YELLOW) Urine Appearance Slightly cloudy A (CLEAR) Urine pH 7.0 (5.0-8.0) Ur Specific [place] 1.020 (1.008-1.030) Urine Protein Negative (NEGATIVE) mg/dL Urine Glucose (UA) Negative (NEGATIVE) mg/dL Urine Ketones Negative (NEGATIVE) mg/dL Urine Occult Blood Negative (NEGATIVE) Urine Nitrite Negative (NEGATIVE) Urine Bilirubin Negative (NEGATIVE) Urine Urobilinogen 0.2 (0.2-1.0) EU/dL Ur Leukocyte Esterase Small H (NEGATIVE) Urine RBC 0-5 (0-5) Urine WBC 0-5 (0-5) Ur Epithelial Cells Few Amorphous Sediment Not seen Urine Bacteria Moderate Urine Mucus Not seen Urine Opiates Screen Negative (NEGATIVE) Ur Oxycodone Screen Negative (NEGATIVE) Urine Methadone Screen Negative (NEGATIVE) Ur Propoxyphene Screen Negative (NEGATIVE) Ur Barbiturates Screen Negative (NEGATIVE) Ur Tricyclics Screen Negative (NEGATIVE) Ur Phencyclidine Scrn Negative (NEGATIVE) Ur Amphetamine Screen Presumptive positive H (NEGATIVE) U Methamphetamines Scrn Presumptive positive H (NEGATIVE) Urine MDMA Screen Negative (NEGATIVE) U Benzodiazepines Scrn Negative (NEGATIVE) U Cocaine Metab Screen Negative (NEGATIVE) U Marijuana (THC) Screen Presumptive positive H (NEGATIVE) Meds: Medications Generic Name Dose Route Start Last Admin Trade Name Freq PRN Reason Stop Dose Admin Lactated Ringer's 1,000 mls @ 999 mls/hr 12/30/20 21:30 12/30/20 22:14 Ringers, Lactated IV 999 mls/hr ASDIRECTED TOBY Administration Sodium Chloride 83 mls @ 3 mls/sec 12/30/20 21:45 12/30/20 22:26 Normal Saline IV 3 mls/sec ASDIRECTED TOBY Administration Sodium Chloride 10 ml 12/30/20 21:19 12/30/20 22:26 Sodium Chloride 0.9% 10 Ml Syringe FLUSH 10 ml ASDIRECTED PRN Administration Keep Vein Open Discontinued Medications Generic Name Dose Route Start Last Admin Trade Name Jerrod PRN Reason Stop Dose Admin Hydromorphone HCl 0.5 mg 12/30/20 21:21 12/30/20 22:14 Hydromorphone 0.5 Mg/0.5 Ml Syringe IVPUSH 12/30/20 21:22 Not Given ONETIME ONE Hydromorphone HCl 0.5 mg 12/30/20 22:24 12/30/20 22:29 Hydromorphone 0.5 Mg/0.5 Ml Syringe IVPUSH 12/30/20 22:25 0.5 mg ONETIME ONE Administration Hydromorphone HCl 0.5 mg 12/31/20 00:26 12/31/20 00:32 Hydromorphone 0.5 Mg/0.5 Ml Syringe IVPUSH 12/31/20 00:27 0.5 mg ONETIME ONE Administration Ceftriaxone Sodium 1 gm/ 50 mls @ 100 mls/hr 12/30/20 23:11 12/30/20 23:24 Sodium Chloride IV 12/30/20 23:40 100 mls/hr ONETIME ONE Administration Iopamidol 142 ml 12/30/20 21:40 12/30/20 22:26 Iopamidol 612 Mg/Ml 500 Ml Multipack Bottle IV 12/30/20 21:41 142 ml ONETIME ONE Administration Ketorolac Tromethamine 30 mg 12/30/20 21:22 12/30/20 22:13 Ketorolac 30 Mg/Ml Sdv IVPUSH 12/30/20 21:23 30 mg ONETIME ONE Administration Ondansetron HCl 4 mg 12/30/20 21:21 12/30/20 22:13 Ondansetron 4 Mg/2 Ml Sdv IVPUSH 12/30/20 21:22 4 mg ONETIME ONE Administration Sodium Chloride 10 ml 12/30/20 21:40 12/30/20 22:59 Sodium Chloride 0.9% 10 Ml Sdv FLUSH 12/30/20 21:41 Not Given ONETIME ONE - Re-Assessments/Exams Free Text/Narrative Re-Assessment/Exam: 12/30/20 21:45 I laid out my treatment plan which included IV fluids CT scan and blood work, the patient asked for the ability to drink water because she said she was dehydrated. I told her we would not be able to do that as she has abdominal pain and she could have a surgical abdomen so she has to remain n.p.o. When nursing staff came into place the IV and lab came in to draw blood she refused all intervention in my medical opinion she was crying hysterical no control of the situation was refusing IV refusing lab work refusing medications refusing radiology imagery. I stepped into the room and confronted her about this and stated that if you refuse all interventions we cannot provide any care for her. She stated that I was yelling at her and treating her with disrespect and was not going to do any of these interventions because she was dehydrated and wanted to drink. I left the room allowed for a cooling off. At which time I asked the superintendent house to go and discuss care with her. Departure - Departure Time of Disposition: 00:34 Disposition: Home, Self-Care 01 Condition: Fair Clinical Impression: Pyelonephritis - Discharge Information Instructions: Pyelonephritis, Adult, [id number] Referrals: PCP,None [Primary Care Provider] - Forms: ED Department Discharge Additional Instructions: Take full course of antibiotics, use hydrocodone as needed for pain control, please followup with your primary care provider in 3-5 days if not better, please call return to the emergency department with worsening of symptoms. Sepsis Event Note (ED) - Evaluation Sepsis Screening Result: No Definite Risk - Focused Exam Vital Signs: Vital Signs Temp Pulse Resp BP Pulse Ox 12/30/20 22:46 104 H 16 126/70 95 12/30/20 21:04 98.4 F 108 H 16 133/84 97 - My Orders Last 24 Hours: My Active Orders 12/30/20 Breakfast Nothing per Oral Now Diet [DIET] 12/30/20 21:19 Peripheral IV Care [RC] . DIRECTED Sodium Chloride 0.9% [Saline Flush] 10 ml FLUSH ASDIRECTED PRN Peripheral IV Insertion Adult [OM.PC] Urgent 12/30/20 21:30 Lactated Ringers [Ringers, Lactated] 1,000 ml IV ASDIRECTED 12/30/20 21:45 Sodium Chloride 0.9% [Normal Saline] 83 ml IV ASDIRECTED - Assessment/Plan Last 24 Hours: My Active Orders 12/30/20 Breakfast Nothing per Oral Now Diet [DIET] 12/30/20 21:19 Peripheral IV Care [RC] . DIRECTED Sodium Chloride 0.9% [Saline Flush] 10 ml FLUSH ASDIRECTED PRN Peripheral IV Insertion Adult [OM.PC] Urgent 12/30/20 21:30 Lactated Ringers [Ringers, Lactated] 1,000 ml IV ASDIRECTED 12/30/20 21:45 Sodium Chloride 0.9% [Normal Saline] 83 ml IV ASDIRECTED Plan: Assessment Acuity = acute Site and laterality = pyelonephritis right side Etiology = probable bacterial cause Manifestations = right flank pain Location of injury = Home Lab values = WBC elevated 13.7 consistent leukocytosis, lactic acid is normal at 0.9 urinalysis unremarkable urine drug screen positive for methamphetamine and cannabis CT scan describes stranding around the right kidney consistent with a pyelonephritis Plan She is provided 1 L fluids 1 g Rocephin in the emergency department prescription written for Augmentin 875 p.o. twice daily x10 days follow-up primary care 3 to 5 days if no improvement. This note was dictated using [email or web address] voice recognition software please call with any questions on syntax or grammar.
[2020-12-30] MEDS ORDERED: Lactated Ringers 1,000 ML IV SCH (21:30)
[2020-12-30] MEDS ORDERED: Iopamidol 612 MG/ML 500 ML Multipack Bottle IV ONE (21:40)
[2020-12-30] MEDS ORDERED: Sodium Chloride 0.9% 10 ML SDV FLUSH ONE (21:40)
[2020-12-30 22:47] VITALS: BP 126/70; PULSE 104
--- NOTE | 2020-12-30 22:52 | CRLCT ---
INDICATION: Right flank pain TECHNIQUE: Axial images were obtained from the diaphragm to the pubic symphysis. Reformats were obtained in the coronal and sagittal plane. IV Contrast: 142 cc Isovue-300 Oral Contrast: None COMPARISON: None. FINDINGS: Lower chest: Unremarkable. Liver: Unremarkable. Normal in size and attenuation. No masses. Gallbladder and bile ducts: Cholelithiasis without gallbladder wall thickening. Spleen: Unremarkable. Normal in size without mass. Pancreas: Unremarkable. No mass or inflammation. Adrenal glands: Unremarkable. No nodules. Kidneys: No hydronephrosis. Somewhat patchy enhancement of the kidneys, greater on the right with trace perinephric fat stranding. Vasculature: Unremarkable. GI tract: The stomach is unremarkable. Small bowel loops are upper normal in caliber in the left abdomen. No definite evidence of obstruction. Unremarkable appendix. Pelvis: Trace free fluid pelvic cul-de-sac. Bones: Mild degenerative disc disease lumbar spine. IMPRESSION: 1. Patchy enhancement of both kidneys, greater on the right with trace perinephric fat stranding suggesting pyelonephritis. No evidence of abscess. 2. Cholelithiasis without CT evidence of cholecystitis. Please note that all CT scans at this facility use dose modulation, iterative reconstruction, and/or weight-based dosing when appropriate to reduce radiation dose to as low as reasonably achievable. Dictated by Sin Mallory MD @ Dec 30 2020 10:47PM Signed by Dr. Sin Mallory @ Dec 30 2020 10:51PM
[2020-12-30] MEDS ORDERED: cefTRIAXone 1 GM in Sodium Chloride 0.9% 50 ML IV ONE (23:11)
[2020-12-31] MEDS ORDERED: HYDROmorphone 0.5 MG/0.5 ML Syringe IVPUSH ONE (00:26)
== END 2020-12-31 01:03 | disposition home or self-care (01) ==
LOC: JP.ED 20:45
DX: N12 Tubulo-interstitial nephritis, not specified as acute or chronic (principal); E66.9 Obesity, unspecified; Z72.0 Tobacco use; J45.909 Unspecified asthma, uncomplicated; Z91.048 Other nonmedicinal substance allergy status; Z68.33 Body mass index [BMI] 33.0-33.9, adult
CPT/HCPCS: 36415; 74177; 80053; 80305; 81001; 83605; 83690; 84703; 85025; 96365; 96375; 96376; 99284; J0696; J1170; J1885; J2405; J7120; Q9967

== ENCOUNTER 2021-01-01 14:35 | Emergency (ER) | payer MEDICAID ==
[2021-01-01 15:10] VITALS: BP 120/76; PULSE 115
[2021-01-01] MEDS ORDERED: Ketorolac 60 MG/2 ML SDV IM ONE (15:24)
[2021-01-01] MEDS ORDERED: Naproxen 250 MG Tab PO STA (15:29)
--- NOTE | 2021-01-01 15:42 | EDM.PDOC ---
ED HPI GENERAL MEDICAL PROBLEM - General Chief Complaint: Flank Pain Stated Complaint: KIDNEY INFECTION FEELS WORSE Time Seen by Provider: 01/01/21 15:05 Source of Information: Reports: Patient, Old Records, RN History Limitations: Reports: No Limitations - History of Present Illness INITIAL COMMENTS - FREE TEXT/NARRATIVE: 30 yo female presents due to "flank pain". Was seen here 2 days ago by Officer for this same complaint and was given an antibiotic and an oral opiate with instructions to f/u in 3 d in the clinic. During that visit her WBC ct was borderline at 13K, her UA was neg, her CT scan mentioned that pyelonephritis might be a possibility. She had arrived on that visit by EMS who had given IV opiates, and she got several additional doses of opiates while in the ER. Her pain meds are now out. She says she took ibuprofen last last night without relief. Had a fever yesterday she says. She has not attempted to make an appt at the clinic yet. She reportedly still has her appendix. Since departure her urine culture grew only mixed diony. Reportedly took her last [place] "this morning". Onset: Unknown/Unsure Duration: Day(s):, Constant Location: Reports: Abdomen (R side) Quality: Reports: Sharp Severity: Severe Improves with: Reports: Other (lying on her R side) Worsens with: Reports: Other (lying on her back) Context: Reports: Other (See HPI) Associated Symptoms: Reports: No Other Symptoms. 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) (antibiotic only today) Right Flank Pain Score (Numeric/FACES): 9 - Related Data Allergies Allergy/AdvReac Type Severity Reaction Status Date / Time tape Allergy Rash Uncoded 01/01/21 15:12 Home Meds: Home Meds Albuterol Sulfate [Proventil Hfa] 2 puff IH Q4H PRN 12/30/20 [History] Acetaminophen/HYDROcodone [[place] 325-5 MG] 1 tab PO Q4H PRN 01/01/21 [History] Amoxicillin/Clavulanate K [Augmentin 875-125 MG] 1 tab PO BID 01/01/21 [History] Past Medical History - Past Health History Medical/Surgical History: Denies Medical/Surgical History HEENT History: Reports: None Respiratory History: Reports: Asthma 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 History: 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: Neurological History: Reports: Brain Injury Psychiatric History: Reports: Addiction, Anxiety, Bipolar, Depression, Other (See Below) Other Psychiatric History: borderline personality; social anxiety disorder Endocrine/Metabolic History: Reports: Obesity/BMI 30+ - Infectious Disease History Infectious Disease History: Reports: Chicken Pox - Past Surgical History HEENT Surgical History: Reports: Adenoidectomy, Tonsillectomy Respiratory Surgical History: Reports: None Female Surgical History: Reports: Section, Tubal Ligation Endocrine Surgical History: Reports: None Social & Family History - Family History Family Medical History: No Pertinent Family History - Tobacco Use Tobacco Use Status *Q: Current Every Day Tobacco User Years of Tobacco use: 14 Packs/Tins Daily: 0.5 - Caffeine Use Caffeine Use: Reports: Soda - Recreational Drug Use Recreational Drug Type: Reports: Marijuana/Hashish, Methamphetamine Recreational Drug Use Frequency: Daily ED ROS GENERAL - Review of Systems Review Of Systems: See Below Constitutional: Reports: No Symptoms. Denies: Fever (not today) HEENT: Reports: No Symptoms Respiratory: Reports: No Symptoms Cardiovascular: Reports: No Symptoms GI/Abdominal: Reports: Abdominal Pain. Denies: Black Stool, Bloody Stool, Constipation, Diarrhea, Distension, Hematemesis, Hematochezia, Melena, Nausea, Vomiting : Reports: No Symptoms Musculoskeletal: Reports: No Symptoms Skin: Reports: No Symptoms Neurological: Reports: No Symptoms ED EXAM, GI/ABD - Physical Exam Exam: See Below Exam Limited By: No Limitations General Appearance: Alert, WD/WN, No Apparent Distress Eyes: Bilateral: Normal Appearance Ears: Normal External Exam, Normal Canal, Hearing Grossly Normal, Normal TMs Nose: Normal Inspection, No Blood Throat/Mouth: Normal Inspection, Normal Lips, Normal Oropharynx, Normal Voice, No Airway Compromise Head: Atraumatic, Normocephalic Neck: Normal Inspection Respiratory/Chest: No Respiratory Distress, Lungs Clear, Normal Breath Sounds, No Accessory Muscle Use Cardiovascular: Regular Rate, Rhythm, No Edema GI/Abdominal Exam: Normal Bowel Sounds, Soft, No Distention, Tender (RLQ). No: Non-Tender, Distended, Guarding, Rigid, Rebound, Hernia Back Exam: Normal Inspection Extremities: Normal Inspection, Normal Range of Motion, Non-Tender, No Pedal Edema Neurological: Alert, Oriented, CN II-XII Intact, Normal Cognition, No Motor/Sensory Deficits Psychiatric: Normal Affect, Normal Mood Skin Exam: Warm, Dry, Intact, Normal Color, No Rash Course - Vital Signs Last Recorded V/S: Last Vital Signs Temp 36.7 C 01/01/21 15:12 Pulse 115 H 01/01/21 15:12 Resp 22 H 01/01/21 15:12 BP 120/76 01/01/21 15:12 Pulse Ox 100 01/01/21 15:12 - Orders/Labs/Meds Labs: Laboratory Tests 01/01/21 01/01/21 Range/Units 15:36 15:47 Urine Color Yellow (YELLOW) Urine Appearance Clear (CLEAR) Urine pH 7.0 (5.0-8.0) Ur Specific [place] 1.015 (1.008-1.030) Urine Protein Negative (NEGATIVE) mg/dL Urine Glucose (UA) Negative (NEGATIVE) mg/dL Urine Ketones Negative (NEGATIVE) mg/dL Urine Occult Blood Negative (NEGATIVE) Urine Nitrite Negative (NEGATIVE) Urine Bilirubin Negative (NEGATIVE) Urine Urobilinogen 0.2 (0.2-1.0) EU/dL Ur Leukocyte Esterase Trace H (NEGATIVE) Urine RBC Not seen (0-5) Urine WBC 0-5 (0-5) Ur Epithelial Cells Few Amorphous Sediment Rare Urine Bacteria Few Urine Mucus Rare Urine Opiates Screen Negative (NEGATIVE) Ur Oxycodone Screen Negative (NEGATIVE) Urine Methadone Screen Negative (NEGATIVE) Ur Propoxyphene Screen Negative (NEGATIVE) Ur Barbiturates Screen Negative (NEGATIVE) Ur Tricyclics Screen Negative (NEGATIVE) Ur Phencyclidine Scrn Negative (NEGATIVE) Ur Amphetamine Screen Negative (NEGATIVE) U Methamphetamines Scrn Presumptive positive H (NEGATIVE) Urine MDMA Screen Negative (NEGATIVE) U Benzodiazepines Scrn Negative (NEGATIVE) U Cocaine Metab Screen Negative (NEGATIVE) U Marijuana (THC) Screen Presumptive positive H (NEGATIVE) Meds: Medications Discontinued Medications Generic Name Dose Route Start Last Admin Trade Name Freq PRN Reason Stop Dose Admin Ketorolac Tromethamine 60 mg 01/01/21 15:24 Ketorolac 60 Mg/2 Ml Sdv IM 01/01/21 15:25 ONETIME ONE Naproxen 500 mg 01/01/21 15:29 01/01/21 16:11 Naproxen 250 Mg Tab PO 01/01/21 15:30 Not Given STAT STA - Re-Assessments/Exams Free Text/Narrative Re-Assessment/Exam: 01/01/21 15:47 Toradol was offered and refused. We then offered 500 mg of Naproxen and she also refused this. She did give us a urine specimen, but refused her blood draw by lab and stormed out apparently unhappy she wasn't getting an opiate for her "pain". Departure - Departure Time of Disposition: 15:35 Disposition: Eloped 07 Condition: Good Clinical Impression: Methamphetamine use, Drug-seeking behavior, Marijuana use, Normal urinalysis - Discharge Information *PRESCRIPTION DRUG MONITORING PROGRAM REVIEWED*: No *COPY OF PRESCRIPTION DRUG MONITORING REPORT IN PATIENT LOCO: No Referrals: Brennen Jung NP [Primary Care Provider] - Forms: ED Department Discharge Sepsis Event Note (ED) - Evaluation Sepsis Screening Result: No Definite Risk - Focused Exam Vital Signs: Vital Signs Temp Pulse Resp BP Pulse Ox 01/01/21 15:12 36.7 C 115 H 22 H 120/76 100 01/01/21 15:08 36.7 C 115 H 22 H 120/76 100
== END 2021-01-01 15:35 | disposition left against medical advice (07) ==
LOC: JP.ED 14:35
DX: F15.90 Other stimulant use, unspecified, uncomplicated (principal); F12.90 Cannabis use, unspecified, uncomplicated; J45.909 Unspecified asthma, uncomplicated; Z91.048 Other nonmedicinal substance allergy status; E66.9 Obesity, unspecified; Z72.0 Tobacco use; Z68.34 Body mass index [BMI] 34.0-34.9, adult
CPT/HCPCS: 80305-QW; 81001; 99282; 99284

== ENCOUNTER 2021-01-17 06:13 | Day surgery (SDC) | payer MEDICAID ==
[~2021-01-17 06:13] MED LIST: Bupivacaine 0.5% 50 ML MDV ONE; Lidocaine 1% with EPINEPHrine 1:100,000 50 ML MDV ONE
[2021-01-17] MEDS: Dextrose 5%-Lactated Ringers 1,000 ML IV SCH ×3 (06:43→23:25)
[2021-01-17] MEDS ORDERED: Acetaminophen 500 MG Tab PO ONE (07:00)
[2021-01-17] MEDS ORDERED: Albuterol/Ipratropium 3.0-0.5 MG/3 ML Neb Soln NEB ONE (07:00)
[2021-01-17] MEDS ORDERED: fentaNYL 250 MCG/5 ML SDV ONE (07:05)
[2021-01-17] MEDS ORDERED: Glycopyrrolate 0.2 MG/ML 5 ML MDV ONE (07:06)
[2021-01-17] MEDS ORDERED: Dexamethasone 4 MG/ML SDV ONE (07:06)
[2021-01-17] MEDS ORDERED: Succinylcholine 200 MG/10 ML MDV ONE (07:06)
[2021-01-17] MEDS ORDERED: Propofol 200 MG/20 ML SDV ONE (07:06)
[2021-01-17] MEDS ORDERED: Neostigmine Methylsulfate 1 MG/ML 5 ML Syringe ONE (07:06)
[2021-01-17] MEDS ORDERED: Rocuronium 50 MG/5 ML Vial ONE (07:06)
[2021-01-17] MEDS ORDERED: Ondansetron 4 MG/2 ML SDV ONE (07:06)
[2021-01-17] MEDS ORDERED: Ketamine 50 MG in Sodium Chloride 0.9% 49.5 ML IV SCH (08:00)
[2021-01-17] MEDS ORDERED: cefOXitin 2 GM in Sodium Chloride 0.9% 50 ML IV ONE (08:00)
[2021-01-17] MEDS ORDERED: Ketamine 500 MG/5 ML MDV IV SCH (08:00)
[2021-01-17] MEDS ORDERED: fentaNYL 100 MCG/2 ML SDV ONE (10:03)
[2021-01-17] MEDS ORDERED: hydrOXYzine HCL 100 MG/2 ML SDV IM ONE (10:32)
[2021-01-17] MEDS: HYDROmorphone 1 MG/ML Syringe IV PRN ×3 (11:14→18:59)
[2021-01-17] MEDS: Acetaminophen/HYDROcodone 325-5 MG Tab PO PRN ×3 (11:16→21:25)
[2021-01-17] MEDS ORDERED: hydrOXYzine HCL 100 MG/2 ML SDV IM PRN (12:00)
[2021-01-17] MEDS ORDERED: Ondansetron 4 MG/2 ML SDV IVPUSH PRN (12:00)
[2021-01-17] MEDS ORDERED: Albuterol/Ipratropium 3.0-0.5 MG/3 ML Neb Soln INH PRN (12:00)
[2021-01-17] MEDS ORDERED: HYDROmorphone 0.5 MG/0.5 ML Syringe IVPUSH PRN (12:00)
[2021-01-17] MEDS: Albuterol/Ipratropium 3.0-0.5 MG/3 ML Neb Soln INH SCH ×2 (14:30→21:24)
[2021-01-17] MEDS: cefOXitin 2 GM in Sodium Chloride 0.9% 50 ML IV SCH ×2 (14:40→21:24)
[2021-01-17] MEDS ORDERED: Pantoprazole 40 MG Vial IVPUSH SCH (15:00)
[2021-01-17] MEDS ORDERED: Cyclobenzaprine 10 MG Tab PO PRN (19:25)
[2021-01-18] MEDS: Acetaminophen/HYDROcodone 325-5 MG Tab PO PRN ×3 (03:01→11:39)
[2021-01-18] MEDS: cefOXitin 2 GM in Sodium Chloride 0.9% 50 ML IV SCH ×2 (03:02→08:54)
[2021-01-18] MEDS: Albuterol/Ipratropium 3.0-0.5 MG/3 ML Neb Soln INH SCH ×2 (07:09→10:34)
[2021-01-18] MEDS ORDERED: Pantoprazole 40 MG Tab.CR PO SCH (07:30)
[2021-01-18] MEDS ORDERED: Sodium Chloride 0.9% 10 ML Syringe IV PRN (07:47)
[2021-01-18] MEDS ORDERED: Bisacodyl 5 MG Tab PO SCH (09:00)
[2021-01-18 11:28] VITALS: BP 132/76; PULSE 82
--- NOTE | 2021-01-20 13:54 | PN ---
DATE OF SERVICE: 01/18/2021 The patient has been afebrile with stable vital signs. Apparently is doing very well but is somewhat nauseated and lethargic this morning. Given this, we will hold the discharge. Labs look good. We will pull the drain out today and give her some bowel stimulation. She will likely be ready to go home tomorrow. Serafin Leong MD /[id number]
--- NOTE | 2021-03-08 09:41 | OR ---
DATE OF PROCEDURE: 01/17/2021 SURGEON: Serafin Leong MD PREOPERATIVE DIAGNOSES: Cholecystitis and cholelithiasis. POSTOPERTIVE DIAGNOSES: 1. Cholecystitis and cholelithiasis. 2. Incarcerated umbilical hernia. OPERATIVE PROCEDURE: Diagnostic laparoscopy with: 1. Cholecystectomy (32107). 2. Repair of incarcerated umbilical hernia (36641). ANESTHESIA: General. INDICATIONS FOR PROCEDURE: A 30-year-old female presenting with some worsening of abdominal pain, felt to be related to cholelithiasis. Plan is to proceed with laparoscopic cholecystectomy. Potential risks of the procedure including bleeding, infection, injury to underlying viscera, problems with the stones moving into the common bile duct requiring additional procedures for correction as well as possibility of persistent symptoms postoperatively were all gone over and the patient wishes to proceed. DETAILS OF PROCEDURE: The patient was taken to the operating room and placed in a supine position after general endotracheal anesthesia was induced, the abdomen was prepped and draped. A transverse epigastric incision was made and peritoneal cavity entered under direct vision with an Optiview trocar, inflated to 15 mmHg pressure with CO2. Laparoscope was reinserted. No underlying trocar insertion site injuries were seen. Following this, a 12 mm subumbilical trocar was placed in the initial incision. The patient was noted have incarcerated umbilical hernia located in that area and the tissue around this was dissected free and the trocar was then placed through the umbilical hernia defect. Additional 5 mm trocar was placed in the right subcostal area. Bilateral transversus abdominis plane blocks were then placed. The gallbladder was noted to be thick-walled and consistent with chronic cholecystitis, and the gallbladder was retracted anteriorly and laterally, and dissection began along the gallbladder neck, continued around the gallbladder neck and cystic duct junction. Once that area as well as the adjacent cystic artery were both identified they were taken with STEPHANE lilian. The gallbladder was then dissected off the gallbladder bed using Harmonic scalpel and delivered through the upper midline port, containing multiple small stones. At this point, a drain was felt not to be necessary. The camera was then brought up to the epigastric port and using the endoscopic suture passer, the umbilical hernia was closed with a series of 0 Vicryl sutures, closing the umbilical hernia defect in a transverse orientation. Upon completion of this phase, the remaining trocars were removed, peritoneal cavity deflated. The fascia at the epigastric site was closed with 0 Vicryl stitch and the skin at each incision with 4-0 Vicryl skin stitch. Local anesthetic was applied to the incision and the patient was taken to the recovery room in satisfactory condition. Serafin Leong MD /[id number]
== END 2021-01-18 14:00 | disposition home or self-care (01) ==
LOC: JP.SDS 06:13 → JP.MS 10:30 → JP.SDS 01-18 14:00
PROVIDERS: ATTEND Surgery
DX: K80.10 Calculus of gallbladder with chronic cholecystitis without obstruction (principal); K42.0 Umbilical hernia with obstruction, without gangrene; E66.9 Obesity, unspecified; J45.909 Unspecified asthma, uncomplicated; F17.210 Nicotine dependence, cigarettes, uncomplicated; Z90.49 Acquired absence of other specified parts of digestive tract; Z98.890 Other specified postprocedural states; Z91.048 Other nonmedicinal substance allergy status; Z79.899 Other long term (current) drug therapy; Z91.030 Bee allergy status; Z68.34 Body mass index [BMI] 34.0-34.9, adult
CPT/HCPCS: 36415; 80053; 82247; 83735; 84075; 84100; 85025; 85027; 88302; 88304; 94640; A9270-GY; C9113; J0171; J0330; J0694; J1100; J1170; J2405; J2704; J2710; J2795; J3010; J3410; J3490; J7121; J7620-GY